=== PATIENT | female | born 1965 ===

== ENCOUNTER 2019-07-18 07:30 | Emergency (ER) | payer SELFPAY ==
[2019-07-18] MEDS ORDERED: RSI MEDICATION KIT IV ONE (07:31)
[2019-07-18] MEDS ORDERED: LORazepam 2 MG/ML VIAL ONE ×2 (07:31→07:34)
[2019-07-18] MEDS ORDERED: ETOMIDATE 20 MG/10 ML VIAL IV ONE (07:31)
[2019-07-18] MEDS ORDERED: SUCCINYLCHOLINE 20 MG/ML (10 ML) IV ONE (07:31)
[2019-07-18] MEDS ORDERED: NA CHLORIDE 0.9% 2,000 ML ONE (07:32)
[2019-07-18] MEDS ORDERED: MIDAZOLAM HCL 2 MG/2 ML INJ ONE (07:34)
[2019-07-18] MEDS ORDERED: dexAMETHasone 10 MG/ML VIAL ONE ×2 (07:39)
[2019-07-18] MEDS ORDERED: NA CHLORIDE 0.9% 100 ML IV ONE (07:39)
[2019-07-18] MEDS ORDERED: FOSPHENYTOIN PE 500 MG/10 ML VIAL ONE (07:39)
[2019-07-18] MEDS ORDERED: FOSPHENYTOIN PE 1,000 MG in NA CHLORIDE 0.9% 100 ML IV ONE (07:45)
[2019-07-18 07:50] LABS: Absolute Lymphocytes (CBC) 4.6 K/uL (0.7-4.9); Basophils % 1.1 % (0-1.3); Hematocrit 40.1 % (36.0-45.0); Lymphocytes % 44.1 % (15.3-44.8); MPV 12.8 fL (7.6-11.3); RBC Red Blood Cell Count 4.39 M/uL (3.86-4.86)
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
[2019-07-18 08:10] LABS: Potassium 3.7 mmol/L (3.5-5.1)
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
[2019-07-18 08:35] LABS: Protime INR 0.99
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
[2019-07-18 10:21] LABS: ALT/SGPT 24 U/L (12-78); AST/SGOT 32 U/L (15-37); Albumin 3.9 g/dL (3.4-5.0); Alkaline Phosphatase 160 U/L (45-117); Bilirubin Direct < 0.1 mg/dL (0-0.2); Bilirubin Total 0.3 mg/dL (0.2-1.0); Magnesium 2.2 mg/dL (1.8-2.4); NT PRO-BNP 201 pg/mL (<125); Troponin (Emerg Dept Use Only) < 0.02 ng/mL (0.0-0.045)
== END 2019-07-18 08:51 | disposition short-term general hospital (02) ==
LOC: ER 07:30
PROC: 0BH17EZ Insertion of Endotracheal Airway into Trachea, Via Natural or Artificial Opening (ICD-10-PCS; principal; 2019-07-18)
PROC: 5A1935Z Respiratory Ventilation, Less than 24 Consecutive Hours (ICD-10-PCS; 2019-07-18)
PROC: 0T9B70Z Drainage of Bladder with Drainage Device, Via Natural or Artificial Opening (ICD-10-PCS; 2019-07-18)
DX: S06.9X9A Unspecified intracranial injury with loss of consciousness of unspecified duration, initial encounter (principal); V47.0XXA Car driver injured in collision with fixed or stationary object in nontraffic accident, initial encounter; Y93.89 Activity, other specified; Y92.410 Unspecified street and highway as the place of occurrence of the external cause; G40.509 Epileptic seizures related to external causes, not intractable, without status epilepticus
CPT/HCPCS: 31500; 36415; 51702; 70450; 71045; 71260; 72125; 74177; 80048; 80076; 82962; 83735; 83880; 84443; 84484; 85025; 85610; 86850; 86900; 86901; 94002; 96361; 96374; 96375; 99285; J0330; J1100; J2250; J7030; Q2009; Q9967